=== PATIENT | female | born 1990 | race Caucasian/White ===

== ENCOUNTER 2017-08-28 12:08 | Outpatient (CLI) | payer MEDICAID ==
[2017-08-28 12:56] LABS: APPEARANCE,URINE CLEAR; BILIRUBIN,URINE NEGATIVE (NEGATIVE); COLOR,URINE YELLOW; GLUCOSE, URINE NEGATIVE (NEGATIVE); KETONES,URINE NEGATIVE (NEGATIVE); LEUKOCYTE ESTERASE,URINE NEGATIVE (NEGATIVE); NITRITE,URINE NEGATIVE (NEGATIVE); PROTEIN,URINE 30 mg/dL (NEGATIVE); UROBILINOGEN,URINE NEGATIVE mg/dL (<2.0)
--- NOTE | 2017-08-28 12:56 | L&D Progress Notes ---
PROGRESS NOTES Datetime Report Generated by CPN: 08/28/2017 12:56 PROGRESS NOTE Comment: spotting when wiping after voiding, cervix. closed, firm, pick discharge on glove, no uc's, cramping, reviewed S_S to report SIGNATURE SIGNATURE: [id number] Assignment: Naveed Armijo MD Signature: with User ID: [email or web address] : with User ID: [email or web address]
[2017-08-28 13:17] LABS: URINE AMPHETAMINES SCREEN NEGATIVE; URINE BARBITURATES SCREEN NEGATIVE; URINE BENZODIAZEPINES SCREEN NEGATIVE; URINE COCAINE SCREEN NEGATIVE; URINE MARIJUANA (THC) SCREEN NEGATIVE; URINE METHADONE SCREEN NEGATIVE; URINE PHENCYCLIDINE SCREEN NEGATIVE
== END 2017-08-28 13:06 | disposition home or self-care (01) ==
LOC: LC 12:08
PROVIDERS: ATTEND Obstetrics & Gynecology
PROC: 4A1HXCZ Monitoring of Products of Conception, Cardiac Rate, External Approach (ICD-10-PCS; principal; 2017-08-28)
DX: O26.852 Spotting complicating pregnancy, second trimester (principal); O99.282 Endocrine, nutritional and metabolic diseases complicating pregnancy, second trimester; E86.0 Dehydration; Z3A.25 25 weeks gestation of pregnancy
CPT/HCPCS: 80307; 81001

== ENCOUNTER 2017-10-17 13:54 | Emergency (ER) | payer MEDICAID ==
[2017-10-17] MEDS ORDERED: ALBUTEROL SULFATE HFA (90 MCG/PUFF) 8 GM MDI (1 MDI/ER DISP) IH PRN (14:32)
--- NOTE | 2017-10-17 14:32 | ER Document Report ---
ED Respiratory Problem - General Mode of Arrival: Ambulatory Information source: Patient TRAVEL OUTSIDE OF THE [place] IN LAST 30 DAYS: No - General Chief Complaint: Shortness Of Breath Stated Complaint: WHEEZING Time Seen by Provider: 10/17/17 14:24 Notes: Patient is a 27-year-old female that presents to the emergency department today with complaints of difficulty breathing. Patient states she has been wheezing for "a few days". Patient states she has bad seasonal allergies and when this time a year comes around she usually has a problem with wheezing. Patient states she does not have any at home inhalers currently. Patient denies any problems with her including any vaginal bleeding or vaginal discharge currently. Patient denies any abdominal pain. Patient states she is simply here for her breathing difficulties. (JULIUS KEENAN) - Related Data Allergies/Adverse Reactions: Penicillins Allergy (Verified 10/17/17 14:20) Past Medical History - General Information source: Patient - Social History Smoking Status: Never Smoker Cigarette use (# per day): No Chew tobacco use (# tins/day): No Frequency of alcohol use: None Drug Abuse: None Lives with: Family Family History: None Patient has suicidal ideation: No Patient has homicidal ideation: No Renal/ Medical History: Denies: Hx Peritoneal Dialysis Surgical Hx: Negative - Immunizations Hx Diphtheria, Pertussis, Tetanus Vaccination: No Review of Systems - Review of Systems Constitutional: No symptoms reported EENT: No symptoms reported Cardiovascular: No symptoms reported Respiratory: See HPI, Short of breath, Wheezing Gastrointestinal: No symptoms reported Genitourinary: No symptoms reported Female Genitourinary: No symptoms reported Musculoskeletal: No symptoms reported Skin: No symptoms reported Hematologic/Lymphatic: No symptoms reported Neurological/Psychological: No symptoms reported -: Yes All other systems reviewed and negative Physical Exam - Vital signs Vitals: Temp Pulse Resp BP Pulse Ox 98.2 F 107 H 16 133/78 H 96 10/17/17 14:05 10/17/17 14:05 10/17/17 14:05 10/17/17 14:05 10/17/17 14:05 - Notes Notes: Physical Exam: General: Alert, appears well. HEENT: Normocephalic. Atraumatic. PERRL. Extraocular movements intact. Oropharynx clear. Neck: Supple. Non-tender. Respiratory: No respiratory distress. Diffuse wheezing throughout. Cardiovascular: Regular rate and rhythm. Abdominal: Gravid uterus. no distension. Normal Bowel Sounds. Back: Non-tender. No deformity or step off. Extremities: Moves all four extremities. Upper extremities: Normal inspection. Normal ROM. Lower extremities: Normal inspection. No edema. Normal ROM. Neurological: Normal cognition. AAOx4. Normal speech. Psychological: Normal affect. Normal Mood. Skin: Warm. Dry. Normal color. (JULIUS KEENAN) Course - Re-evaluation Re-evalutation: The patient has mild and expiratory breath phase with minor wheezing bilaterally. No crackles. Will provide albuterol puffer and instructions for use. Patient symptoms not suggestive of pulmonary embolus or pneumonia. (RUTH MEDINA ) - Vital Signs Vital signs: Temp Pulse Resp BP Pulse Ox 97.9 F 118 H 14 103/78 95 10/17/17 14:45 10/17/17 14:45 10/17/17 14:45 10/17/17 14:45 10/17/17 14:45 Discharge - Discharge Clinical Impression: Wheezing Disposition: HOME, SELF-CARE Instructions: Bronchitis With Bronchospasm (Wheezing) ([facility]) Additional Instructions: Please use albuterol puffer provided 2-4 puffs every 4 hours as needed. Return to emergency department for worsening symptoms santiago including onset of fevers coughing up copious amounts of sputum or any other concerns Referrals: PRASANTH SIDHU MD [Primary Care Provider] - Follow up as needed Scribe Attestation: 10/19/17 11:19 I personally performed the services described in the documentation, reviewed and edited the documentation which was dictated to the scribe in my presence, and it accurately records my words and actions. (RUTH MEDINA) Scribe Documentation - Scribe Written by Scribe:: Titus Chen, 10/17/2017 [id number] acting as scribe for :: Cooper
[2017-10-17 14:48] VITALS: BP 103/78
== END 2017-10-17 14:53 | disposition home or self-care (01) ==
LOC: ER 13:54
DX: R06.2 Wheezing (principal); R06.02 Shortness of breath; Z88.0 Allergy status to penicillin
CPT/HCPCS: 99284; J3490